=== PATIENT | male | born 1975 | race Caucasian/White ===

== ENCOUNTER 2020-08-04 14:55 | Inpatient (IN) | payer SELFPAY ==
[~2020-08-04 14:55] MED LIST: Iopamidol-370 76% 500 ML 1 ML ONE
[2020-08-04 15:46] LABS: #Lymphocytes 0.8 thou/uL (1.20-3.40); #Monocytes 0.2 thou/uL (0.11-0.59); %Basophils 0.5 % (0.0-1.0); %Eosinophils 0.1 % (0.0-10.0); %Lymphocytes 12.9 % (21.0-51.0); %Monocytes 2.7 % (0.0-10.0); %Neutrophils 83.8 % (42.0-75.0); Hemoglobin 15.5 g/dL (14.0-18.0); Mean Corpuscular HGB CONC 35.3 g/dL (32.0-36.0); Mean Corpuscular Hemoglobin 33.3 pg (27.0-31.0); Mean Corpuscular Volume 94.1 fL (78.0-98.0); Mean Platelet Volume 8.3 fL (7.4-10.4); Platelet Count 179 thou/uL (130-400); RBC Distribution Width 11.8 % (11.5-14.5); Red Blood Cell (RBC) Count 4.65 mill/uL (4.70-6.10)
[2020-08-04 15:52] LABS: Prothrombin Time 13.7 sec (12.0-14.7)
--- NOTE | 2020-08-04 15:52 | RAD ---
PORTABLE CHEST ONE VIEW: 08/04/20 at 3:40 p.m. HISTORY: Shortness of breath, COVID signs and symptoms, chest pain. FINDINGS/IMPRESSION: The heart size is normal. The lungs are expanded without lobar consolidation, pneumothoraces, or pleu ral effusions. There is suggestion of bilateral mild patchy opacities. This is suspicious for COVID-1 9 pneumonia. No pneumothoraces or pleural effusions are seen. POS: AH
[2020-08-04 15:53] LABS: PTT 29.5 sec (22.9-36.1)
[2020-08-04] MEDS ORDERED: Dexamethasone 4 mg/ml Vial ONE (16:14)
[2020-08-04] MEDS ORDERED: Azithromycin 500 MG VIAL ONE (16:14)
[2020-08-04 17:04] LABS: Albumin 3.6 g/dL (3.5-5.0)
--- NOTE | 2020-08-04 17:05 | CT ---
CTA Angio Chest W WO Con 08/04/2020 4:50 PM Indication: Dyspnea and shortness of breath Technique: Multiple CTA images were obtained of the thorax with IV contrast. 3-D rendering: MIP viraj nstructed images were created and reviewed. Comparison: No relevant prior studies available. Findings: Pulmonary arteries: No central or segmental pulmonary embolus is evident. Heart and Aorta: Normal appearing. Mediastinum:There are mildly prominent lymph nodes within the mediastinum. One of the most prominent is seen adjacent to the right mainstem rhonchus measuring 1.3 cm. Lungs:There are patchy areas of groundglass airspace opacities throughout both lungs suspicious for p neumonia. Pleural space: Clear. Upper Abdomen: There is mild fatty liver. Visualized adrenal glands are unremarkable appearing. Osseous Structures: No acute osseous abnormality. Soft tissues:No abnormality. Other findings:None. Impression: 1. No central or segmental pulmonary embolus demonstrated. 2. Multifocal pneumonia. 3. Mild hilar and mediastinal lymphadenopathy, likely reactive. 4. Mild fatty liver.
[2020-08-04 17:06] LABS: Chloride 100 mmol/L (98-107); Potassium 3.5 mmol/L (3.5-5.1); Sodium 131 mmol/L (136-145)
[2020-08-04 17:07] LABS: Globulin 3.1 g/dL (2.4-3.5); Glucose 229 mg/dL (70-105); Protein, Total 6.7 g/dL (6.0-8.3)
[2020-08-04 17:08] LABS: Carbon Dioxide 16 mmol/L (22-29)
[2020-08-04 17:09] LABS: Anion Gap 19 mmol/L (10-20); Bilirubin, Total 0.6 mg/dL (0.2-1.2)
[2020-08-04 17:10] LABS: Alkaline Phosphatase 77 U/L (40-110)
[2020-08-04 17:11] LABS: BUN (Urea Nitrogen) 8 mg/dL (8.9-20.6); Calc. Creatinine Clearance 0 mL/min (70-130)
[2020-08-04 17:12] LABS: AST (SGOT) 15 U/L (5-34)
[2020-08-04 17:13] LABS: ALT (SGPT) 18 U/L (8-55)
--- NOTE | 2020-08-04 18:04 | PDOC.FPRHP ---
- History of Present Illness Chief Complaint: SOB, CP History of Present Illness: Patient is a 45 yo male with no significant PMH who presented to the ED for SOB and CP. The patient reports that he began feeling weak last Saturday. During this time he has also experienced cough and SOB, but has not had a loss of taste of smell. He also endorses chest pain in the mid chest that is worse with inspiration. He has also been experiencing diarrhea and nausea with dry heaves. Endorses fever and chills. He denies a PCP or any recent hospitalizations. He does not take any medications at this time. He is unsure of any exposure. He recently moved her from [place] to be with family. ED Course: Azithro 500 mg, Decadron 6 mg, and 2 L NS - Allergies/Adverse Reactions Allergies Allergy/AdvReac Type Severity Reaction Status Date / Time No Known Allergies Allergy Unverified 08/04/20 18:47 - History PMHx: Denies PMH PSHx: Denies PSHx FHx: Denies family history of heart disease and DM Social: Drinks socially, recently quit smoking tobacco 3 weeks ago, previously vaped for <10 years - Review of Systems General: reports: fever/chills, fatigue Eyes: denies: eye pain, vision changes ENT: reports: nasal congestion Respiratory: reports: cough, shortness of breath Cardiovascular: reports: chest pain Gastrointestinal: reports: nausea, diarrhea Genitourinary: denies: incontinence, dysuria Skin: denies: rashes, lesions Musculoskeletal: reports: arthritis/arthralgias Neurological: reports: weakness Psychological: denies: anxiety, depression - Vital signs BP: 135/89 HR: 114 RR: 27 Tmax: 99.3 Pox: 94% on 2L Wt: 126 kg - Physical Exam Constitutional: NAD, awake, alert and oriented, well developed HEENT: PERRLA, grossly normal vision, grossly normal hearing, MMM Neck: FROM, no JVD, no bruits Heart: RRR, normal S1/S2, no murmurs/rubs/gallops Lungs: other (Good air movement, coarse breath sounds) Abdomen: soft, non-tender, bowel sounds present Musculoskeletal: normal tone, ROM grossly normal Neurological: CN II-XII intact Skin: good turgor, capillary refill <2 seconds Heme/Lymphatic: no unusual bruising or bleeding Psychiatric: normal mood and affect, good judgment and insight FMR H&P: Results - Labs Result Diagrams: 08/04/20 15:13 08/04/20 16:45 Lab results: WBC 6.0 thou/uL (4.8-10.8) 08/04/20 15:13 Hgb 15.5 g/dL (14.0-18.0) 08/04/20 15:13 Hct 43.7 % (42.0-52.0) 08/04/20 15:13 MCV 94.1 fL (78.0-98.0) 08/04/20 15:13 Plt Count 179 thou/uL (130-400) 08/04/20 15:13 Neutrophils % 83.8 % (42.0-75.0) H 08/04/20 15:13 Sodium 131 mmol/L (136-145) L 08/04/20 16:45 Potassium 3.5 mmol/L (3.5-5.1) 08/04/20 16:45 Chloride 100 mmol/L (98-107) 08/04/20 16:45 Carbon Dioxide 16 mmol/L (22-29) L 08/04/20 16:45 BUN 8 mg/dL (8.9-20.6) L 08/04/20 16:45 Creatinine 0.76 mg/dL (0.7-1.3) 08/04/20 16:45 Glucose 229 mg/dL (70-105) H 08/04/20 16:45 Lactic Acid 1.6 mmol/L (0.5-2.2) 08/04/20 15:13 Calcium 8.0 mg/dL (7.8-10.44) 08/04/20 16:45 Total Bilirubin 0.6 mg/dL (0.2-1.2) 08/04/20 16:45 AST 15 U/L (5-34) 08/04/20 16:45 ALT 18 U/L (8-55) 08/04/20 16:45 Alkaline Phosphatase 77 U/L (40-110) 08/04/20 16:45 Serum Total Protein 6.7 g/dL (6.0-8.3) 08/04/20 16:45 Albumin 3.6 g/dL (3.5-5.0) 08/04/20 16:45 - EKG Interpretation EKG: Sinus Tach - Radiology Interpretation Chest x-ray Status: image reviewed by me, report reviewed by me Additional comment: Suggestion of bilateral mild patchy opacities. Suspicious for COVID-19 pneumonia. Other Status: report reviewed by me Additional comment: CTA: No PE, multifocal pneumonia FMR H&P: A/P - Problem List (1) Pneumonia due to 2019 novel coronavirus Current Visit: Yes Status: Acute Code(s): U07.1 - COVID-19; J12.89 - OTHER VIRAL PNEUMONIA (2) Diabetes Current Visit: Yes Status: Acute Code(s): E11.9 - TYPE 2 DIABETES MELLITUS WITHOUT COMPLICATIONS (3) Hypertension Current Visit: Yes Status: Acute Code(s): I10 - ESSENTIAL (PRIMARY) HYPERTE NSION (4) Hyperlipidemia Current Visit: Yes Status: Acute Code(s): E78.5 - HYPERLIPIDEMIA, UNSPECIFIED - Plan SOB and CP likely 2/2 to COVID ([facility]) - Chest Xray: Suggestive of bilateral mild patchy opacities. Suspicious for COVID-19 pneumonia - s/p 500 mg of azithro, 6 mg Decadron, and 2L NS in ED - will continue Decadron 4 mg BID - D-dimer: 0.46, will trend daily - CTA: negative - will start 40 mg of Lovenox BID - will obtain Ferritin, LDH, CRP, and continue to trend troponin (less than 0.010, 0.015) - EKG: sinus tachy - currently on 2L NC, wean as tolerated with goal O2 sats > 92% - COVID test obtained yesterday, pending results -Symptom onset 08/02/20 Sepsis 2/2 to COVID ([facility]I) vs Bacterial pneumonia - Tachycardic (114), Tachypnic (27) - s/p azithro, decadron, and 2L NS - will give 1 gram of Rocephin to treat bacterial pneumonia - will obtain procal - consider respiratory viral panel if COVID negative Elevated Blood Pressure - denies history of hypertension, but does not regularly see a physician - will likely need to start BP meds while hospitalized - will also obtain lipid panel Hyperglycemia - denies diagnosis of diabetes - glucose: 229 - will obtain A1C and likely start metformin if needed PCP: none Code: Full IVF: SL Diet: CC PPx: 40 mg BID Lovenox Dispo: will admit to medical for further management FMR H&P: Upper Level - Plan Date/Time: 08/04/20 0273 IFernando DO, have evaluated this patient and agree with findings/plan as outlined by production internship resident. I personally saw the patient to obtain history and physical above.
[2020-08-04] MEDS ORDERED: Ondansetron ODT 4 MG TAB PO PRN (18:29)
[2020-08-04 18:44] LABS: Troponin I 0.015 ng/mL (< 0.028)
[2020-08-04 19:41] LABS: Hemoglobin A1c 12.4 % (4.0-6.0)
[2020-08-04] MEDS ORDERED: cefTRIAXone\\ROCEPHIN 1 GM in Sodium Chloride 0.9% 100 ML IVPB SCH (20:00)
[2020-08-04 20:31] LABS: Thyroid Stimulating Hormone 0.4648 uIU/mL (0.35-4.94)
[2020-08-04 21:25] LABS: Ferritin 2314.3 ng/mL (22-322)
[2020-08-04 22:10] LABS: Troponin I Less than 0.010 ng/mL (< 0.028)
[2020-08-04] MEDS ORDERED: Dextrose 50% Abboject 50 ML SYRINGE SLOW IVP PRN (22:21)
[2020-08-04] MEDS ORDERED: Dextrose 5% in Water 1,000 ML IV PRN (22:21)
[2020-08-04] MEDS ORDERED: Insulin Glargine 20 UNITS in Pre-Filled Syringe 1 EACH SC SCH (23:30)
[2020-08-05] MEDS: Enoxaparin Sodium 40 MG/0.4 ML SYRINGE SC SCH ×3 (00:30→20:16)
[2020-08-05] MEDS: Rosuvastatin 20 MG TAB PO SCH ×2 (00:35→20:17)
[2020-08-05 02:36] VITALS: BMI 41.0
[2020-08-05] MEDS ORDERED: FLU VACC QS2020-21(6MOS UP)/PF 60 MCG/0.5 ML SYRINGE IM ONE (03:15)
[2020-08-05 05:36] LABS: SARS-CoV-2 MS2 Positive; SARS-CoV-2 N Gene Positive; SARS-CoV-2 S Gene Positive; SARS-CoV-2 by NAA DETECTED (NotDetected); SARS-CoV-2 orf1ab Positive
[2020-08-05] MEDS: HumaLOG 300 UNITS/3 ML VIAL SC PRN ×3 (05:56→22:01)
[2020-08-05 06:11] LABS: #Monocytes 0.3 thou/uL (0.11-0.59); #Neutrophils 5.7 thou/uL (1.40-6.50); %Basophils 0.5 % (0.0-1.0); %Eosinophils 0.5 % (0.0-10.0); %Lymphocytes 14.3 % (21.0-51.0); %Neutrophils 80.7 % (42.0-75.0); Hemoglobin 15.2 g/dL (14.0-18.0); Mean Corpuscular HGB CONC 33.2 g/dL (32.0-36.0); Mean Corpuscular Hemoglobin 31.6 pg (27.0-31.0); Mean Corpuscular Volume 95.2 fL (78.0-98.0); Mean Platelet Volume 8.6 fL (7.4-10.4); Platelet Count 193 thou/uL (130-400); RBC Distribution Width 11.8 % (11.5-14.5); Red Blood Cell (RBC) Count 4.83 mill/uL (4.70-6.10)
--- NOTE | 2020-08-05 06:30 | PDOC.FM ---
- Subjective Subjective: Pt resting in bed this AM. No acute events overnight. Is having SOB on NC. No cough. Having some chills. - Objective Vital Signs & Weight: Vital Signs (12 hours) Temp Pulse Resp BP Pulse Ox 08/05/20 02:00 97.1 F L 95 20 128/85 95 08/04/20 22:21 96.8 F L 94 20 132/90 95 Weight Weight 126 kg Result Diagrams: 08/05/20 05:32 08/05/20 07:39 Phys Exam - Physical Examination Constitutional: NAD on 2L NC HEENT: moist MMs Neck: supple Respiratory: no wheezing, no rales, no rhonchi Cardiovascular: RRR, no significant murmur, no rub Gastrointestinal: soft, non-tender, no distention, positive bowel sounds Musculoskeletal: pulses present Neurological: normal sensation Psychiatric: normal affect, A&O x 3 Skin: normal turgor Dx/Plan - Plan Plan: SOB and CP likely 2/2 to COVID PNA, sxs onset 08/02/20 - Chest Xray: Suggestive of bilateral mild patchy opacities. COVID ++ - Will continue Decadron 4 mg BID for now - D-dimer: 0.46, will trend daily - Lovenox 40mg BID - Ferritin 2314, LDH 426, CRP 15.66 - Increased NC to 4L - Convalescent plasma and remdesivir Sepsis 2/2 to PNA - COVID ++ as above - Procal 0.19 Elevated Blood Pressure - Pt started on lisinopril 10mg, continue to monitor BPs - Lipid panel just showed hypertriglyceridemia 179 New diagnosis of diabetes - In DKA currently. Will transfer to [facility] for insulin drip and DKA protocol. - A1C 12.4 - Pt is on metformin and actos - Will need outpatient management Code: Full Diet: CC PPx: 40 mg BID Lovenox PCP: None Dispo as of 08/05: Continuing to monitor respiratory status. Pending to transfer to [facility]. DKA protocol will be initiated.
[2020-08-05 06:34] LABS: Anion Gap 25 mmol/L (10-20); BUN (Urea Nitrogen) 13 mg/dL (8.9-20.6); Calc. Creatinine Clearance 181 mL/min (70-130); Carbon Dioxide 16 mmol/L (22-29); Chloride 101 mmol/L (98-107); Glucose 307 mg/dL (70-105); Potassium 4.3 mmol/L (3.5-5.1); Sodium 138 mmol/L (136-145)
[2020-08-05] MEDS ORDERED: Sodium Chloride 0.9% 1,000 ML IV PRN ×4 (06:51)
[2020-08-05] MEDS ORDERED: NS 0.9% w/ 20 MEQ KCL 1,000 ML IV PRN ×2 (06:51)
[2020-08-05] MEDS ORDERED: Dextrose 5 %-0.45 % NaCl 1,000 ML IV PRN (06:51)
[2020-08-05] MEDS ORDERED: D5 1/2 NS w/20 mEq KCL 1,000 ML IV PRN (06:51)
[2020-08-05] MEDS ORDERED: Electrolyte Replacement Protocol 1 EACH IVPB SCH (06:51)
[2020-08-05] MEDS ORDERED: HUMULIN R 100 UNITS in Sodium Chloride 0.9% 100 ML IVPB SCH (07:00)
[2020-08-05] MEDS ORDERED: Ondansetron PF 4 MG/2 ML Vial IVP PRN (07:35)
[2020-08-05 08:09] LABS: Anion Gap 23 mmol/L (10-20); BUN (Urea Nitrogen) 12 mg/dL (8.9-20.6); Calc. Creatinine Clearance 183 mL/min (70-130); Calcium 8.5 mg/dL (7.8-10.44); Carbon Dioxide 16 mmol/L (22-29); Chloride 100 mmol/L (98-107); Glucose 286 mg/dL (70-105); Potassium 4.4 mmol/L (3.5-5.1); Sodium 135 mmol/L (136-145)
[2020-08-05] MEDS ORDERED: Insulin Regular 300 UNITS/3 ML VIAL IVP SCH (08:15)
[2020-08-05] MEDS: Dexamethasone 4 mg/ml Vial SLOW IVP SCH ×2 (09:32→20:17)
[2020-08-05] MEDS: Acetaminophen 325 MG TAB PO PRN ×2 (09:34→20:16)
[2020-08-05] MEDS: Pioglitazone HCl 15 MG TAB PO SCH (09:34)
[2020-08-05] MEDS: metFORMIN 500 MG TAB PO SCH ×2 (09:36→16:47)
[2020-08-05] MEDS: Lisinopril 10 MG TAB PO SCH (09:36)
[2020-08-05] MEDS: Magnesium 2 GM/50 ML 2 GM in Premix Bag 1 BAG IVPB SCH ×2 (09:36→10:15)
[2020-08-05] MEDS ORDERED: Mometasone 100 MCG/Formoterol 5 MCG 120 PUFF INHALER INH SCH (11:00)
[2020-08-05 11:07] LABS: Anion Gap 24 mmol/L (10-20); BUN (Urea Nitrogen) 13 mg/dL (8.9-20.6); Calc. Creatinine Clearance 202 mL/min (70-130); Calcium 8.4 mg/dL (7.8-10.44); Carbon Dioxide 12 mmol/L (22-29); Chloride 102 mmol/L (98-107); Glucose 278 mg/dL (70-105); Potassium 3.9 mmol/L (3.5-5.1); Sodium 134 mmol/L (136-145)
[2020-08-05] MEDS ORDERED: REMDESIVIR (EUA) 200 MG in Sodium Chloride 0.9% 250 ML 210 ML IV SCH ×2 (12:00→18:00)
--- NOTE | 2020-08-05 13:11 | PRG ---
DATE OF SERVICE: 08/05/2020 I have read the note of Dr. Jessica Martínez, discussed the case with her and agree with her assessment and plan. Job ID: [id number]
[2020-08-05 15:44] LABS: Anion Gap 14 mmol/L (10-20); BUN (Urea Nitrogen) 11 mg/dL (8.9-20.6); Calc. Creatinine Clearance 229 mL/min (70-130); Calcium 8.2 mg/dL (7.8-10.44); Carbon Dioxide 20 mmol/L (22-29); Chloride 104 mmol/L (98-107); Glucose 145 mg/dL (70-105); Potassium 3.8 mmol/L (3.5-5.1); Sodium 134 mmol/L (136-145)
[2020-08-05] MEDS ORDERED: Insulin Glargine 25 UNITS in Pre-Filled Syringe 1 EACH SC SCH (16:15)
[2020-08-05] MEDS ORDERED: NPH, Human Insulin Isophane 300 UNIT/3 ML VIAL SC SCH (16:30)
[2020-08-05] MEDS ORDERED: REMDESIVIR (EUA) 100 MG in Sodium Chloride 0.9% 250 ML 230 ML IV SCH (18:00)
[2020-08-05 20:37] LABS: Anion Gap 18 mmol/L (10-20); BUN (Urea Nitrogen) 10 mg/dL (8.9-20.6); Calc. Creatinine Clearance 193 mL/min (70-130); Calcium 8.1 mg/dL (7.8-10.44); Carbon Dioxide 18 mmol/L (22-29); Chloride 99 mmol/L (98-107); Glucose 274 mg/dL (70-105); Potassium 4.1 mmol/L (3.5-5.1); Sodium 131 mmol/L (136-145)
[2020-08-05] MEDS ORDERED: Insulin Glargine 20 UNITS in Pre-Filled Syringe 1 EACH SC SCH (21:00)
[2020-08-05] MEDS ORDERED: Benzonatate 100 MG CAP PO PRN (21:54)
[2020-08-06 00:40] LABS: Anion Gap 16 mmol/L (10-20); BUN (Urea Nitrogen) 10 mg/dL (8.9-20.6); Calc. Creatinine Clearance 233 mL/min (70-130); Calcium 8.3 mg/dL (7.8-10.44); Carbon Dioxide 19 mmol/L (22-29); Chloride 102 mmol/L (98-107); Glucose 208 mg/dL (70-105); Potassium 4.2 mmol/L (3.5-5.1); Sodium 133 mmol/L (136-145)
[2020-08-06] MEDS: Mometasone 100 MCG/Formoterol 5 MCG 120 PUFF INHALER INH SCH ×3 (00:44→16:46)
[2020-08-06 04:15] LABS: #Lymphocytes 0.5 thou/uL (1.20-3.40); #Monocytes 0.2 thou/uL (0.11-0.59); #Neutrophils 7.5 thou/uL (1.40-6.50); %Lymphocytes 6.4 % (21.0-51.0); %Monocytes 2.9 % (0.0-10.0); %Neutrophils 90.6 % (42.0-75.0); Hemoglobin 14.1 g/dL (14.0-18.0); Mean Corpuscular HGB CONC 35.8 g/dL (32.0-36.0); Mean Corpuscular Hemoglobin 33.6 pg (27.0-31.0); Mean Corpuscular Volume 93.9 fL (78.0-98.0); Mean Platelet Volume 8.3 fL (7.4-10.4); Platelet Count 181 thou/uL (130-400); RBC Distribution Width 11.8 % (11.5-14.5); Red Blood Cell (RBC) Count 4.19 mill/uL (4.70-6.10); White Blood Cell (WBC) Count 8.3 thou/uL (4.8-10.8)
[2020-08-06 04:41] LABS: ALT (SGPT) 16 U/L (8-55); AST (SGOT) 16 U/L (5-34); Albumin 3.3 g/dL (3.5-5.0); Alkaline Phosphatase 72 U/L (40-110); Anion Gap 13 mmol/L (10-20); BUN (Urea Nitrogen) 10 mg/dL (8.9-20.6); Bilirubin, Total 0.4 mg/dL (0.2-1.2); Calc. Creatinine Clearance 257 mL/min (70-130); Calcium 8.1 mg/dL (7.8-10.44); Carbon Dioxide 22 mmol/L (22-29); Chloride 102 mmol/L (98-107); Globulin 3.3 g/dL (2.4-3.5); Glucose 225 mg/dL (70-105); Potassium 3.9 mmol/L (3.5-5.1); Protein, Total 6.6 g/dL (6.0-8.3); Sodium 133 mmol/L (136-145)
[2020-08-06] MEDS: HumaLOG 300 UNITS/3 ML VIAL SC PRN ×6 (04:58→20:52)
--- NOTE | 2020-08-06 05:36 | PDOC.FM ---
- Subjective Subjective: Pt resting comfortably. He states she wants to go home. Tolerating diet. He has not really tried ambulating. He denies SOB, N/V. - Objective Vital Signs & Weight: Vital Signs (12 hours) Temp Pulse Ox 08/06/20 04:10 94 L 08/06/20 04:00 98.0 F 08/06/20 00:00 98.6 F 08/05/20 20:00 93 L 08/05/20 19:45 97.8 F 08/05/20 19:35 97.8 F 08/05/20 18:00 99.2 F Weight Weight 126 kg Most Recent Monitor Data Heart Rate from ECG 86 NIBP 130/82 NIBP BP-Mean 98 Respiration from ECG 31 SpO2 91 I&O: 08/04/20 08/05/20 08/06/20 06:59 06:59 06:59 Intake Total 850 Balance 850 Result Diagrams: 08/06/20 04:00 08/06/20 17:38 Phys Exam - Physical Examination Constitutional: NAD HEENT: sclera anicteric Neck: supple mild wheezing Cardiovascular: RRR, no significant murmur Gastrointestinal: soft Neurological: non-focal Psychiatric: normal affect Skin: no rash Dx/Plan - Plan Plan: Acute Hypoxic Resp Failure 2/2 COVID PNA - sx onset 08/02/20, COVID + on 08/04 - Chest Xray: Suggestive of bilateral mild patchy opacities. - Will continue Decadron 4 mg BID - D-dimer: 0.85->0.72, will trend daily - Lovenox 40mg BID - Ferritin 2314, LDH 426, CRP 15.66 - 4L NC, will wean as tolerated - Convalescent plasma and remdesivir (08/05-08/09) Sepsis 2/2 to PNA - resolved - COVID ++ as above - Procal 0.19 Elevated Blood Pressure - normotensive today, will continue to monitor BPs - may need outpatient f/u New diagnosis of diabetes - DKA resolved, AG 9 - A1C 12.4 - meds: metformin, NPH, mod SSI - CM: will qualify for novalin as outpatient - Will need outpatient management Code: Full Diet: CC PPx: 40 mg BID Lovenox PCP: None Dispo: Continuing to monitor respiratory status, wean oxygen as tolerated. will transfer out of [facility] when stable, LOS>48hrs Addendum - Attending - Attending Attestation Date/Time: 08/06/202007 I personally evaluated the patient and discussed the management with Dr. Holbrook. I agree with the History, Examination, Assessment and Plan documented above with any addition or exceptions noted below. COVID PNA with hypoxic resp failure- on 4L NC- continue remdesivir, steroids, lovenox. New onset DM with DKA- off insulin drip but sugars not at goal. Keep in ICU and repeat BMP serially. Increase insulin with goal sugars <200 during hospitalization.
[2020-08-06] MEDS: metFORMIN 500 MG TAB PO SCH ×2 (07:22→16:46)
[2020-08-06] MEDS: Lisinopril 10 MG TAB PO SCH (07:22)
[2020-08-06] MEDS: Pioglitazone HCl 15 MG TAB PO SCH (07:22)
[2020-08-06] MEDS: Dexamethasone 4 mg/ml Vial SLOW IVP SCH ×2 (07:22→20:48)
[2020-08-06] MEDS: Enoxaparin Sodium 40 MG/0.4 ML SYRINGE SC SCH ×2 (07:23→20:49)
[2020-08-06] MEDS ORDERED: NPH, Human Insulin Isophane 300 UNIT/3 ML VIAL SC SCH ×4 (09:00→21:00)
[2020-08-06] MEDS: NPH, Human Insulin Isophane 300 UNIT/3 ML VIAL SC SCH ×2 (09:07→20:50)
[2020-08-06] MEDS ORDERED: REMDESIVIR (EUA) 200 MG in Sodium Chloride 0.9% 250 ML 210 ML IV SCH (10:00)
[2020-08-06] MEDS ORDERED: REMDESIVIR (EUA) 100 MG in Sodium Chloride 0.9% 250 ML 230 ML IV SCH (12:00)
[2020-08-06 14:28] LABS: Anion Gap 19 mmol/L (10-20); BUN (Urea Nitrogen) 11 mg/dL (8.9-20.6); Calc. Creatinine Clearance 229 mL/min (70-130); Calcium 8.7 mg/dL (7.8-10.44); Carbon Dioxide 15 mmol/L (22-29); Chloride 102 mmol/L (98-107); Glucose 308 mg/dL (70-105); Potassium 4.3 mmol/L (3.5-5.1); Sodium 132 mmol/L (136-145)
[2020-08-06 18:07] LABS: Anion Gap 18 mmol/L (10-20); BUN (Urea Nitrogen) 11 mg/dL (8.9-20.6); Calc. Creatinine Clearance 223 mL/min (70-130); Calcium 8.9 mg/dL (7.8-10.44); Carbon Dioxide 19 mmol/L (22-29); Chloride 101 mmol/L (98-107); Glucose 285 mg/dL (70-105); Potassium 4.4 mmol/L (3.5-5.1); Sodium 134 mmol/L (136-145)
[2020-08-06] MEDS: Rosuvastatin 20 MG TAB PO SCH (20:48)
[2020-08-06] MEDS ORDERED: Insulin Glargine 25 UNITS in Pre-Filled Syringe 1 EACH SC SCH (21:00)
[2020-08-07 01:42] LABS: Anion Gap 15 mmol/L (10-20); BUN (Urea Nitrogen) 12 mg/dL (8.9-20.6); Calc. Creatinine Clearance 246 mL/min (70-130); Carbon Dioxide 23 mmol/L (22-29); Chloride 101 mmol/L (98-107); Glucose 222 mg/dL (70-105); Potassium 4.4 mmol/L (3.5-5.1); Sodium 135 mmol/L (136-145)
[2020-08-07] MEDS: HumaLOG 300 UNITS/3 ML VIAL SC PRN ×5 (01:50→16:28)
[2020-08-07 05:01] LABS: #Basophils 0.1 thou/uL (0.0-0.2); #Lymphocytes 0.6 thou/uL (1.20-3.40); #Monocytes 0.2 thou/uL (0.11-0.59); %Basophils 1.5 % (0.0-1.0); %Eosinophils 0.2 % (0.0-10.0); %Lymphocytes 11.4 % (21.0-51.0); %Monocytes 4.8 % (0.0-10.0); %Neutrophils 82.1 % (42.0-75.0); Hemoglobin 13.8 g/dL (14.0-18.0); Mean Corpuscular HGB CONC 33.5 g/dL (32.0-36.0); Mean Corpuscular Hemoglobin 31.7 pg (27.0-31.0); Mean Corpuscular Volume 94.7 fL (78.0-98.0); Mean Platelet Volume 8.9 fL (7.4-10.4); Platelet Count 205 thou/uL (130-400); RBC Distribution Width 11.8 % (11.5-14.5); Red Blood Cell (RBC) Count 4.36 mill/uL (4.70-6.10); White Blood Cell (WBC) Count 4.9 thou/uL (4.8-10.8)
[2020-08-07 05:26] LABS: ALT (SGPT) 15 U/L (8-55); AST (SGOT) 14 U/L (5-34); Albumin 3.3 g/dL (3.5-5.0); Alkaline Phosphatase 67 U/L (40-110); Anion Gap 16 mmol/L (10-20); BUN (Urea Nitrogen) 12 mg/dL (8.9-20.6); Bilirubin, Total 0.3 mg/dL (0.2-1.2); Calc. Creatinine Clearance 278 mL/min (70-130); Calcium 8.5 mg/dL (7.8-10.44); Carbon Dioxide 20 mmol/L (22-29); Chloride 103 mmol/L (98-107); Globulin 3.2 g/dL (2.4-3.5); Glucose 188 mg/dL (70-105); Potassium 3.7 mmol/L (3.5-5.1); Protein, Total 6.5 g/dL (6.0-8.3); Sodium 135 mmol/L (136-145)
[2020-08-07] MEDS: Mometasone 100 MCG/Formoterol 5 MCG 120 PUFF INHALER INH SCH ×3 (05:39→18:21)
--- NOTE | 2020-08-07 05:42 | PDOC.FM ---
- Subjective Subjective: Pt resting comfortably. No complaints. Denies SOB, CP, N/V. - Objective Vital Signs & Weight: Vital Signs (12 hours) Temp Pulse Ox 08/07/20 00:00 97.7 F 08/06/20 20:51 97.9 F 08/06/20 20:00 94 L Weight Weight 126 kg Most Recent Monitor Data Heart Rate from ECG 76 NIBP 133/92 NIBP BP-Mean 105 Respiration from ECG 15 SpO2 93 I&O: 08/05/20 08/06/20 08/07/20 06:59 06:59 06:59 Intake Total 1580 1080 Output Total 53 600 Balance 1527 480 Result Diagrams: 08/07/20 04:50 08/07/20 04:49 Phys Exam - Physical Examination Constitutional: NAD HEENT: sclera anicteric Neck: supple Respiratory: no wheezing, clear to auscultation bilateral Cardiovascular: RRR, no significant murmur Gastrointestinal: soft Neurological: non-focal Psychiatric: normal affect, A&O x 3 Dx/Plan - Plan Plan: Acute Hypoxic Resp Failure 2/2 COVID PNA - sx onset 08/02/20, COVID + on 08/04 - Chest Xray: Suggestive of bilateral mild patchy opacities. - decadron 6mg po daily - D-dimer: 0.85->0.72>0.4, will trend daily - Lovenox 40mg BID - Ferritin 2314, LDH 426, CRP 15.66 - 4L NC, will wean as tolerated - Convalescent plasma and remdesivir (08/05-08/09) Sepsis 2/2 to PNA - resolved - COVID ++ as above - Procal 0.19 Elevated Blood Pressure - normotensive today, will continue to monitor BPs - may need outpatient f/u New diagnosis of diabetes - DKA resolved, AG 12 - A1C 12.4 - meds: metformin, NPH, mod SSI - CM: will qualify for novalin as outpatient - Will need outpatient management Code: Full Diet: CC PPx: 40 mg BID Lovenox PCP: None Dispo: Continuing to monitor respiratory status, wean oxygen as tolerated. transfer to medical today, LOS>48hrs Addendum - Attending - Attending Attestation Date/Time: 08/07/20 1600 I personally evaluated the patient and discussed the management with Dr. Holbrook. I agree with the History, Examination, Assessment and Plan documented above with any addition or exceptions noted below. COVID Pneumonia with acute hypoxic resp failure- transition decadron to once daily. Continue O2 to keep sats >90% DKA- resolved. Increase insulin to get sugars at goal of <200. Xfer to medical floor.
[2020-08-07] MEDS: NPH, Human Insulin Isophane 300 UNIT/3 ML VIAL SC SCH ×3 (07:46→20:54)
[2020-08-07] MEDS: Enoxaparin Sodium 40 MG/0.4 ML SYRINGE SC SCH ×2 (07:46→20:54)
[2020-08-07] MEDS: Dexamethasone 4 mg/ml Vial SLOW IVP SCH (07:46)
[2020-08-07] MEDS: metFORMIN 500 MG TAB PO SCH ×2 (07:46→16:35)
[2020-08-07] MEDS ORDERED: NPH, Human Insulin Isophane 300 UNIT/3 ML VIAL SC SCH (09:00)
[2020-08-07] MEDS: REMDESIVIR (EUA) 100 MG in Sodium Chloride 0.9% 250 ML 230 ML IV SCH (10:37)
[2020-08-07] MEDS: Rosuvastatin 20 MG TAB PO SCH (20:53)
[2020-08-08] MEDS: HumaLOG 300 UNITS/3 ML VIAL SC PRN ×3 (00:08→16:40)
[2020-08-08 05:55] LABS: #Lymphocytes 1.1 thou/uL (1.20-3.40); #Monocytes 0.3 thou/uL (0.11-0.59); %Basophils 0.2 % (0.0-1.0); %Eosinophils 0.6 % (0.0-10.0); %Lymphocytes 25.3 % (21.0-51.0); %Monocytes 6.7 % (0.0-10.0); %Neutrophils 67.2 % (42.0-75.0); Hemoglobin 13.8 g/dL (14.0-18.0); Mean Corpuscular HGB CONC 33.9 g/dL (32.0-36.0); Mean Corpuscular Hemoglobin 31.6 pg (27.0-31.0); Mean Corpuscular Volume 93.2 fL (78.0-98.0); Mean Platelet Volume 8.5 fL (7.4-10.4); Platelet Count 225 thou/uL (130-400); RBC Distribution Width 11.8 % (11.5-14.5); Red Blood Cell (RBC) Count 4.37 mill/uL (4.70-6.10); White Blood Cell (WBC) Count 4.5 thou/uL (4.8-10.8)
--- NOTE | 2020-08-08 05:58 | PDOC.FM ---
- Subjective Subjective: Pt resting in bed comfortably this AM. No acute events overnight. Currently saturating 2L NC. No SOB with walking around his room. Mild cough but has been improving. - Objective Vital Signs & Weight: Vital Signs (12 hours) Temp Pulse Resp BP Pulse Ox 08/08/20 04:00 97.6 F 78 16 115/81 98 08/07/20 23:20 97.4 F L 83 16 132/87 97 08/07/20 21:05 97.1 F L 84 16 131/85 97 08/07/20 20:00 97 Weight Weight 126 kg Most Recent Monitor Data Heart Rate from ECG 75 NIBP 147/101 NIBP BP-Mean 116 Respiration from ECG 26 SpO2 92 I&O: 08/06/20 08/07/20 08/08/20 06:59 06:59 06:59 Intake Total 1580 1320 2550 Output Total 53 600 800 Balance 0843 295 4045 Result Diagrams: 08/08/20 05:30 08/08/20 05:30 Phys Exam - Physical Examination Constitutional: NAD HEENT: moist MMs Neck: supple Respiratory: no wheezing, no rales, no rhonchi, clear to auscultation bilateral Cardiovascular: RRR, no significant murmur, no rub Gastrointestinal: soft, non-tender, no distention, positive bowel sounds Musculoskeletal: no edema, pulses present Neurological: moves all 4 limbs Psychiatric: normal affect, A&O x 3 Skin: normal turgor Dx/Plan - Plan Plan: Acute Hypoxic Resp Failure 2/2 COVID PNA - sx onset 07/26/20, COVID + on 08/04 - Decadron 6mg po daily - D-dimer: daily, downward trending - Lovenox 40mg BID - Convalescent plasma and remdesivir (08/05-08/09) - Currently on 2L weaned 1L on 96%. Elevated Blood Pressure - normotensive today, will continue to monitor BPs - may need outpatient f/u New diagnosis of diabetes - DKA resolved - A1C 12.4 - meds: metformin, NPH, mod SSI - CM: will qualify for novalin as outpatient - Will need outpatient management Code: Full Diet: CC PPx: 40 mg BID Lovenox PCP: None Dispo as of 08/08: Continuing to monitor respiratory status, wean oxygen as tolerated. Controlling BG. Will need to finish course of remdesivir.
[2020-08-08] MEDS: Mometasone 100 MCG/Formoterol 5 MCG 120 PUFF INHALER INH SCH ×2 (05:59→18:31)
[2020-08-08 06:23] LABS: ALT (SGPT) 12 U/L (8-55); AST (SGOT) 11 U/L (5-34); Albumin 3.2 g/dL (3.5-5.0); Alkaline Phosphatase 65 U/L (40-110); Anion Gap 14 mmol/L (10-20); BUN (Urea Nitrogen) 12 mg/dL (8.9-20.6); Bilirubin, Total 0.3 mg/dL (0.2-1.2); Calc. Creatinine Clearance 257 mL/min (70-130); Calcium 8.5 mg/dL (7.8-10.44); Carbon Dioxide 22 mmol/L (22-29); Chloride 106 mmol/L (98-107); Glucose 135 mg/dL (70-105); Potassium 3.2 mmol/L (3.5-5.1); Protein, Total 6.2 g/dL (6.0-8.3); Sodium 139 mmol/L (136-145)
[2020-08-08] MEDS ORDERED: Potassium Chloride 20 MEQ TAB PO SCH (07:45)
[2020-08-08] MEDS: metFORMIN 500 MG TAB PO SCH ×2 (08:10→16:40)
[2020-08-08] MEDS: Dexamethasone 4 MG TAB PO SCH (08:10)
[2020-08-08] MEDS: Enoxaparin Sodium 40 MG/0.4 ML SYRINGE SC SCH ×2 (08:11→20:26)
[2020-08-08] MEDS: NPH, Human Insulin Isophane 300 UNIT/3 ML VIAL SC SCH ×3 (08:11→22:11)
[2020-08-08] MEDS: Lisinopril 5 MG TAB PO SCH (11:03)
[2020-08-08] MEDS ORDERED: NPH, Human Insulin Isophane 300 UNIT/3 ML VIAL SC SCH (11:15)
[2020-08-08] MEDS: REMDESIVIR (EUA) 100 MG in Sodium Chloride 0.9% 250 ML 230 ML IV SCH (11:45)
[2020-08-08] MEDS: Rosuvastatin 20 MG TAB PO SCH (20:26)
--- NOTE | 2020-08-09 05:43 | PDOC.FM ---
- Subjective Subjective: Pt resting comfortably in bed this AM. No acute events overnight. Has been off of NC doing well. No SOB. - Objective Vital Signs & Weight: Vital Signs (12 hours) Temp Pulse Resp BP Pulse Ox 08/09/20 00:00 97.3 F L 81 20 145/92 H 94 L 08/08/20 20:50 97.3 F L 99 20 137/87 96 08/08/20 20:00 96 Weight Weight 126 kg Most Recent Monitor Data Heart Rate from ECG 75 NIBP 147/101 NIBP BP-Mean 116 Respiration from ECG 26 SpO2 92 I&O: 08/07/20 08/08/20 08/09/20 06:59 06:59 06:59 Intake Total 1320 2550 1550 Output Total 600 800 Balance 720 1750 1550 Result Diagrams: 08/09/20 05:50 08/09/20 05:50 Phys Exam - Physical Examination Constitutional: NAD HEENT: moist MMs Neck: supple Respiratory: no wheezing, no rales, no rhonchi, clear to auscultation bilateral Cardiovascular: RRR, no significant murmur, no rub Gastrointestinal: soft, non-tender, no distention, positive bowel sounds Musculoskeletal: pulses present Neurological: normal sensation Lymphatic: no nodes Psychiatric: A&O x 3 Skin: normal turgor Dx/Plan - Plan Plan: Acute Hypoxic Resp Failure 2/2 COVID PNA - sx onset 07/26/20, COVID + on 08/04 - Decadron 6mg po daily - D-dimer: daily, downward trending - Lovenox 40mg BID - Convalescent plasma and remdesivir (08/05-08/09) Elevated Blood Pressure - normotensive today, will continue to monitor BPs - started lisinopril 5mg - may need outpatient f/u New diagnosis of diabetes - DKA resolved - A1C 12.4 - meds: metformin, NPH, mod SSI - CM: will qualify for novalin as outpatient - Will need outpatient management Code: Full Diet: CC PPx: 40 mg BID Lovenox PCP: None Dispo as of 08/09: Pt off of NC doing well. Will have his dose of remdesivir today prior to d/c. Will touch base with CM about d/c with insulin. Pt agreeable to outpatient follow up with [facility].
[2020-08-09 06:11] LABS: #Eosinphils 0.1 thou/uL (0.0-0.7); #Lymphocytes 1.1 thou/uL (1.20-3.40); #Monocytes 0.3 thou/uL (0.11-0.59); #Neutrophils 3.1 thou/uL (1.40-6.50); %Basophils 0.4 % (0.0-1.0); %Eosinophils 1.3 % (0.0-10.0); %Lymphocytes 24.2 % (21.0-51.0); %Monocytes 7.4 % (0.0-10.0); %Neutrophils 66.7 % (42.0-75.0); Hemoglobin 13.1 g/dL (14.0-18.0); Mean Corpuscular HGB CONC 33.6 g/dL (32.0-36.0); Mean Corpuscular Hemoglobin 31.4 pg (27.0-31.0); Mean Corpuscular Volume 93.5 fL (78.0-98.0); Mean Platelet Volume 8.4 fL (7.4-10.4); Platelet Count 251 thou/uL (130-400); RBC Distribution Width 11.9 % (11.5-14.5); Red Blood Cell (RBC) Count 4.16 mill/uL (4.70-6.10); White Blood Cell (WBC) Count 4.6 thou/uL (4.8-10.8)
[2020-08-09 06:29] LABS: ALT (SGPT) 15 U/L (8-55); AST (SGOT) 10 U/L (5-34); Albumin 3.2 g/dL (3.5-5.0); Alkaline Phosphatase 72 U/L (40-110); Anion Gap 14 mmol/L (10-20); BUN (Urea Nitrogen) 12 mg/dL (8.9-20.6); Bilirubin, Total 0.3 mg/dL (0.2-1.2); Calc. Creatinine Clearance 239 mL/min (70-130); Calcium 8.5 mg/dL (7.8-10.44); Carbon Dioxide 27 mmol/L (22-29); Chloride 103 mmol/L (98-107); Glucose 156 mg/dL (70-105); Potassium 3.7 mmol/L (3.5-5.1); Protein, Total 6.2 g/dL (6.0-8.3); Sodium 140 mmol/L (136-145)
[2020-08-09] MEDS: Dexamethasone 4 MG TAB PO SCH (08:33)
[2020-08-09] MEDS: Lisinopril 5 MG TAB PO SCH (08:33)
[2020-08-09] MEDS: metFORMIN 500 MG TAB PO SCH (08:33)
[2020-08-09] MEDS: Enoxaparin Sodium 40 MG/0.4 ML SYRINGE SC SCH (08:33)
[2020-08-09] MEDS: NPH, Human Insulin Isophane 300 UNIT/3 ML VIAL SC SCH (08:33)
[2020-08-09] MEDS: Mometasone 100 MCG/Formoterol 5 MCG 120 PUFF INHALER INH SCH (08:34)
[2020-08-09] MEDS: REMDESIVIR (EUA) 100 MG in Sodium Chloride 0.9% 250 ML 230 ML IV SCH (10:34)
[2020-08-09] MEDS: HumaLOG 300 UNITS/3 ML VIAL SC PRN (11:45)
[2020-08-09 15:18] VITALS: BP 134/84; TEMP 97.6
--- NOTE | 2020-08-10 14:19 | DIS ---
DATE OF ADMISSION: 08/04/2020 DATE OF DISCHARGE: 08/09/2020 RESIDENT: LARS COLBERT DO ADMITTING ATTENDING: DISCHARGE ATTENDING: Kevin Kaye MD CONSULTS: None. PROCEDURES: Chest x-ray done on 08/04/2020 showed heart size normal, lungs are expanded without lobar consolidation, pneumothoraces, or pleural effusions. There is suggestion of bilateral mild patchy opacity, this is suspicious for COVID-19 pneumonia. No pneumothoraces or pleural effusions are seen. CTA done on 08/04/2020 showed no central or segmental pulmonary emboli. Demonstrated multifocal pneumonia, mild hilar and mediastinal lymphadenopathy likely reactive, mild fatty liver. PRIMARY DIAGNOSES: COVID pneumonia, acute hypoxic respiratory failure, sepsis secondary to COVID, elevated blood pressure, and hyperglycemia. SECONDARY DIAGNOSIS: None. DISCHARGE MEDICATIONS: 1. Crestor 20 mg p.o. at bedtime. 2. Decadron 6 mg for five days. 3. Metformin 500 mg p.o. b.i.d. 4. Lisinopril 5 mg p.o. daily. 5. NPH 35 units in the morning and 30 units in the p.m. DISCONTINUED MEDICATIONS: None. HISTORY OF PRESENT ILLNESS/HOSPITAL COURSE: This is a 45-year-old gentleman with no previous past medical history as he does not have a PCP, who had began to feel weak the Saturday prior to his admission. During this time, he also experienced cough, shortness of breath, but had not had loss of taste or smell. He also endorsed chest pain in the mid chest that was worse with inspiration. He has been experiencing diarrhea and nausea with dry heaves. He endorsed fever, chills. He does not take any medications at this time. He is unsure of any exposure. He recently moved here from [place] to be with family and as such, he does not have a primary care physician. The patient was requiring 2 L to 4 L of nasal cannula oxygen when he first arrived. Laboratory data showed that his were elevated as well as his initial blood glucoses were high with an anion gap and positive ketones. Due to this, the patient was started on DKA protocol. He was then switched to NPH as he is uninsured and Lantus would not be right option for him, the correct dosage of this was established for him. The patient also had elevated blood pressures and lisinopril was started for him at this time as well. Although the patient had this onset on the 02 of August, he was able to wean off the oxygen with no issues. He was stable enough for discharge on the and he was told to follow up and establish with [facility] as his primary care physician. DISPOSITION: Stable. DISCHARGE INSTRUCTIONS: 1. Location: Home. 2. Diet: Regular. 3. Activity: As tolerated. 4. Followup: In 7-10 days with [facility]. Job ID: [id number]
== END 2020-08-09 15:53 | disposition home or self-care (01) | DRG 871 ==
LOC: ERS 14:55 → T4-B 17:26 → IMCU/EMU 08-05 11:22 → T4-A 08-07 10:02
PROVIDERS: ADMIT Family Medicine; ATTEND Family Medicine
PROC: 8E0ZXY6 Isolation (ICD-10-PCS; principal; 2020-08-04)
PROC: XW13325 Transfusion of Convalescent Plasma (Nonautologous) into Peripheral Vein, Percutaneous Approach, New Technology Group 5 (ICD-10-PCS; 2020-08-05)
PROC: XW033E5 Introduction of Remdesivir Anti-infective into Peripheral Vein, Percutaneous Approach, New Technology Group 5 (ICD-10-PCS; 2020-08-05)
DX: A41.89 Other specified sepsis (principal); J12.89 Other viral pneumonia; U07.1 COVID-19; E11.10 Type 2 diabetes mellitus with ketoacidosis without coma; J96.01 Acute respiratory failure with hypoxia; E78.5 Hyperlipidemia, unspecified; R03.0 Elevated blood-pressure reading, without diagnosis of hypertension; Z87.891 Personal history of nicotine dependence
CPT/HCPCS: 36415; 36416; 36430; 71045; 71275; 80048; 80053; 80061; 82010; 82728; 83036; 83605; 83615; 83735; 84145; 84443; 84484; 85025; 85379; 85610; 85730; 86140; 86850; 86900; 86901; 87040; 87635; 93005; 94760; 96365; 96366; 96374; J0456; J0696; J1100; J1650; J1815; J3475; J3480; J3490; J7050; J8540; P9017; Q9967; U0003